=== PATIENT | male | born 1985 | race Caucasian/White ===

== ENCOUNTER 2021-07-28 16:15 | Emergency (ER) | payer OTHER ==
[~2021-07-28] VITALS: Ht 182.9 cm; Wt 106.9 kg
[2021-07-28] MEDS ORDERED: KETOROLAC 30 MG/ML VIAL. IVP ONE (16:45)
[2021-07-28] MEDS ORDERED: IOHEXOL 300 MG/ML 75 ML VIAL. IV ONE (17:00)
--- NOTE | 2021-07-28 17:19 | RAD ---
EXAM: Scrotal sonogram. HISTORY: Nontraumatic left testicular pain. TECHNIQUE: Dc scale and color Doppler sonographic imaging of the scrotum with spectral waveform shanell lysis was performed. COMPARISON: None. FINDINGS: The testes are normal in size and demonstrate normal symmetric blood flow. No focal testicu lar parenchymal lesion is seen. The epididymides are unremarkable. There are prominent left inguinal vessels. There is no lenore varicocele. There is a suspected trace right hydrocele. No inguinal hernia is seen. No lymphadenopathy is seen. IMPRESSION: 1. Unremarkable testes and epididymides. 2. Prominent left inguinal vessels. No convincing varicocele is seen. 3. Trace right hydrocele. Electronically signed by: Karen Mendoza MD (07/28/2021 5:17 PM) [id number]
--- NOTE | 2021-07-28 17:29 | PHYS DOC ---
Past History Past Surgical History: No Surgical History (HOANG BRADLEY APRN) Alcohol Use: None (HOANG BRADLEY APRN) Adult General Chief Complaint Chief Complaint: TESTICULAR PAIN OR INJURY HPI HPI Patient is a 35-year-old male presents emergency department complaining of left testicular pain since February of this year. Patient denies recent injury to the left testicle. Patient reports an original injury at work in 2014 however denies a surgery to his testicles. Patient reports pain radiates to his left groin area. Patient denies recent injury to his groin. Patient reports a 6-7 out of 10 pain on a 1-10 pain scale. Patient denies taking [id number] or prescription pain medications for this testicular discomfort. Patient denies increased discomfort with sexual intercourse or ejaculation. Patient denies seeing blood in his semen or urine. Patient denies urinary pressure, pain, or burning. Patient denies rashes to his genitals. Patient denies abdominal pain, nausea, vomiting, or diarrhea. Patient denies recent fever or chills. Patient denies other physical complaints or physical concerns. (HOANG BRADLEY APRN) Review of Systems Review of Systems 14 body systems of review of systems have been reviewed. See HPI for pertinent positives and negative responses, otherwise all other systems are negative, nonpertinent or noncontributory. Constitutional: Negative except as outlined in HPI above. Skin: Negative except as outlined in HPI above. Eyes: Negative except as outlined in HPI above. HENT: Negative except as outlined in HPI above. Respiratory: Negative except as outlined in HPI above. Cardiovascular: Negative except as outlined in HPI above. GI: Negative except as outlined in HPI above. : Negative except as outlined in HPI above. Musculoskeletal: Negative except as outlined in HPI above. Integument: Negative except as outlined in HPI above. Neurologic: Negative except as outlined in HPI above. Endocrine: Negative except as outlined in HPI above. Lymphatic: Negative except as outlined in HPI above. Psychiatric: Negative except as outlined in HPI above. (HOANG BRADLEY APRN) Current Medications Current Medications Current Medications Medications (Trade) Dose Ordered Sig/Beckie Start Time Stop Time Status Last Admin Dose Admin Iohexol (Omnipaque 300 Mg/ml) 75 ml 1X ONCE 07/28/21 17:00 07/28/21 17:01 DC Ketorolac Tromethamine (Toradol 30mg Vial) 30 mg 1X ONCE 07/28/21 16:45 07/28/21 16:47 DC (HOANG BRADLEY APRN) Allergies Allergies Allergies Coded Allergies Type Severity Reaction Last Updated Verified No Known Drug Allergies 07/28/21 No (HOANG BRADLEY APRN) Physical Exam Physical Exam Constitutional: Well developed, well nourished, no acute distress, non-toxic appearance. 35-year-old male in no apparent distress. HENT: Normocephalic, atraumatic. Eyes: Conjunctiva normal, no discharge. Neck: Normal range of motion. Cardiovascular: Distal cap refill less than 2 seconds, no cyanosis appreciated. Lungs & Thorax: Patient is in no respiratory distress, no adventitious lung sounds appreciated. Abdomen: Bowel sounds normal, soft, no tenderness, no masses, no pulsatile masses. No bruising or skin discoloration of the abdomen. Skin: Warm, dry, no erythema, no rash. Back: No tenderness, no CVA tenderness. Extremities: No tenderness, no cyanosis, no clubbing, ROM intact, no edema. Neurologic: Alert and oriented X 3, normal motor function, normal sensory function, no focal deficits noted. Psychologic: Affect normal, judgement normal, mood normal. : Testicular exam with nurse at bedside for ice puller reveals no rashes or lesions to the testicles or penis. No masses or erythema or swelling of the testicles. No hernia appreciated. Epididymis is not swollen or painful to palpation. (HOANG BRADLEY APRN) Current Patient Data Vital Signs Vital Signs Date Time Temp Pulse Resp B/P (MAP) Pulse Ox O2 Delivery O2 Flow Rate FiO2 07/28/21 16:45 98.3 77 20 152/75 (100) 97 Room Air (HOANG BRADLEY APRN) EKG EKG [] (HOANG BRADLEY APRN) Radiology/Procedures Radiology/Procedures [] (HOANG BRADLEY APRN) Radiology/Procedures PROCEDURE: CT ABD PELV W/ IV CONTRST ONLY CT abdomen and pelvis with contrast PQRS statement: CT scans at this facility use dose reduction including either automated exposure control, iterative reconstructions, and /or weight based radiation dosing via mA and kV modification when appropriate to reduce radiation dose to as low as reasonably achievable. Contrast: 75 mL Omnipaque 300 intravenous contrast. HISTORY: Left testicle pain and left groin pain. Abdomen findings: Lung bases unremarkable. Lower lumbar disc bulges and facet spurring with spinal canal and neural frontal stenoses L4-L5 on S1. Liver, gallbladder, spleen, pancreas, adrenal glands and kidneys are unremarkable. Appendix is negative. No obstruction or inflammatory changes in GI tract. No abdominal fluid or adenopathy. Pelvis findings: Bladder, prostate, and rectum are unremarkable. No fluid or adenopathy. There is asymmetric left hip osteoarthritis with bone spurring and s ubcortical bone cysts of the acetabulum. Fatty atrophy of the left rectus femoris muscle at the upper thigh likely due to an old injury. Mild fatty prominence of the left spermatic cord versus a mild fatty indirect inguinal hernia with a narrow neck at the inguinal canal, this fat measures 3 x 1 cm at the external inguinal ring and upper scrotum. IMPRESSION: 1. No acute process. Appendix is negative. 2. Mild fatty prominence of the left spermatic cord at the upper scrotum and external inguinal ring as described above. 3. Asymmetric left hip osteoarthritis. 4. Fatty atrophy of the left rectus femoris muscle at the upper thigh likely due to an old injury. Electronically signed by: Fortino Weldon MD (07/28/2021 5:54 PM) [facility] DICTATED AND SIGNED BY: FORTINO WELDON MD DATE: 07/28/211747 CC: HOANG BRADLEY APRN; CORINNE CASILLAS ~MTH0 0 PROCEDURE: TESTICULAR/SCROTUM EXAM: Scrotal sonogram. HISTORY: Nontraumatic left testicular pain. TECHNIQUE: Dc scale and color Doppler sonographic imaging of the scrotum with spectral waveform analysis was performed. COMPARISON: None. FINDINGS: The testes are normal in size and demonstrate normal symmetric blood flow. No focal testicular parenchymal lesion is seen. The epididymides are unremarkable. There are prominent left inguinal vessels. There is no lenore varicocele. There is a suspected trace right hydrocele. No inguinal hernia is seen. No lymphadenopathy is seen. IMPRESSION: 1. Unremarkable testes and epididymides. 2. Prominent left inguinal vessels. No convincing varicocele is seen. 3. Trace right hydrocele. Electronically signed by: Karen Del Castillo MD (07/28/2021 5:17 PM) [id number] DICTATED AND SIGNED BY: KAREN DEL CASTILLO MD DATE: 07/28/21 1714 CC: HOANG BRADLEY APRN; CORINNE CASILLAS ~MTH0 0 (JU GREEN APRN) Heart Score C/O Chest Pain: No Risk Factors: Risk Factors: DM, Current or recent (<one month) smoker, HTN, HLP, family history of CAD, obesity. Risk Scores: Risk Factors: DM, Current or recent (<one month) smoker, HTN, HLP, family history of CAD, obesity. (HOANG BRADLEY APRN) Course & Med Decision Making Course & Med Decision Making Pertinent Labs and Imaging studies reviewed. (See chart for details) 35-year-old male, vital signs reviewed, presents emerged from concerning left testicular pain since February. Physical examination unremarkable however will order CT abdomen pelvis along with sonogram of testicle scrotum to rule out tor breezy, or other acute abdominal process. End of shift report given to nurse practitioner Ju. (HOANG BRADLEY APRN) Course & Med Decision Making 1700 assumed care. Testicular ultrasound unremarkable testes and epididymides.Prominent left inguinal vessels. No convincing varicocele is seen. Trace right hydrocele. Ct of the abd, pelvis no acute process. Appendix is negative. Mild fatty prominence of the left spermatic cord at the upper scrotum and external inguinal ring. Asymmetric left hip osteoarthritis.Fatty atrophy of the left rectus femoris muscle at the upper thigh likely due to an old injury. Advised patient to follow-up with a urologist (JU GREEN APRN) Dragon Disclaimer Dragon Disclaimer This electronic medical record was generated, in whole or in part, using a voice recognition dictation system. (HOANG BRADLEY APRN) Attending Co-Sign The patient was seen and interviewed as well as examined at the bedside. The chart was reviewed. The case was discussed. Agree with the plan of care. (JAZMINE HUGHES DO) Departure Departure: Impression: Primary Impression: Testicular pain, left Additional Impression: Left groin pain Disposition: HOME / SELF CARE / HOMELESS Condition: STABLE Referrals: CORINNE CASILLAS (PCP) Follow-up with a urologist of your choice as soon as you can Patient Instructions: Testicular Problems and Self-Exam Additional Instructions: You were evaluated in the emergency room for groin and testicular pain. As discussed from your CT and ultrasound you have an enlarged left spinal cord, hydrocele, arthritis to the left hip and old injury to the rectus femoris muscle. Please follow-up with a urologist and orthopedic doctor of your choice. Problem Qualifiers HOANG BRADLEY APRN Jul 28, 2021 17:29 JU GREEN APRN Jul 28, 2021 18:59 JAZMINE HUGHES DO Jul 29, 2021 13:42
[2021-07-28 17:37] LABS: BASO % 1 % (0-3); EOS # 0.1 x10^3/uL (0.0-0.7); EOS % 2 % (0-3); HEMATOCRIT 45.1 % (39.0-53.0); HEMOGLOBIN 15.8 g/dL (13.0-17.5); LYMPH # 1.4 x10^3/uL (1.0-4.8); LYMPH % 26 % (24-48); MEAN CORPUSCULAR HEMOGLOBIN 32 pg (25-35); MEAN CORPUSCULAR HGB CONC 35 g/dL (31-37); MEAN CORPUSCULAR VOLUME 91 fL (79-100); MONO # 0.4 x10^3/uL (0.0-1.1); MONO % 7 % (0-9); NEUT # 3.6 x10^3uL (1.8-7.7); NEUT % 65 % (31-73); PLATELET COUNT 257 x10^3/uL (140-400); RED BLOOD COUNT 4.97 x10^6/uL (4.30-5.70); RED CELL DISTRIBUTION WIDTH 13.6 % (11.5-14.5); WHITE BLOOD COUNT 5.6 x10^3/uL (4.0-11.0)
[2021-07-28 17:50] LABS: BACTERIA,URINE 0 /HPF (0-FEW); BILIRUBIN,URINE NEG (NEG); CLARITY,URINE CLEAR; COLOR,URINE YELLOW; GLUCOSE,URINE NEG (NEG); NITRITE,URINE NEG (NEG); RBC,URINE 0 /HPF (0-2); WBC,URINE 0 /HPF (0-4)
[2021-07-28 17:52] LABS: CALCIUM 9.4 mg/dL (8.5-10.1); CREATININE 1.2 mg/dL (0.7-1.3); GFR 68.9; POTASSIUM 3.8 mmol/L (3.5-5.1)
--- NOTE | 2021-07-28 17:56 | RAD ---
CT abdomen and pelvis with contrast PQRS statement: CT scans at this facility use dose reduction including either automated exposure cont rol, iterative reconstructions, and /or weight based radiation dosing via mA and kV modification when appropriate to reduce radiation dose to as low as reasonably achievable. Contrast: 75 mL Omnipaque 300 intravenous contrast. HISTORY: Left testicle pain and left groin pain. Abdomen findings: Lung bases unremarkable. Lower lumbar disc bulges and facet spurring with spinal ca nal and neural frontal stenoses L4-L5 on S1. Liver, gallbladder, spleen, pancreas, adrenal glands and kidneys are unremarkable. Appendix is negative. No obstruction or inflammatory changes in GI tract. No abdominal fluid or adenopathy. Pelvis findings: Bladder, prostate, and rectum are unremarkable. No fluid or adenopathy. There is asy mmetric left hip osteoarthritis with bone spurring and subcortical bone cysts of the acetabulum. Fatt y atrophy of the left rectus femoris muscle at the upper thigh likely due to an old injury. Mild fatt y prominence of the left spermatic cord versus a mild fatty indirect inguinal hernia with a narrow ne ck at the inguinal canal, this fat measures 3 x 1 cm at the external inguinal ring and upper scrotum. IMPRESSION: 1. No acute process. Appendix is negative. 2. Mild fatty prominence of the left spermatic cord at the upper scrotum and external inguinal ring a s described above. 3. Asymmetric left hip osteoarthritis. 4. Fatty atrophy of the left rectus femoris muscle at the upper thigh likely due to an old injury. Electronically signed by: Tony Weldon MD (07/28/2021 5:54 PM) [facility]
[2021-07-28 17:58] LABS: ALBUMIN 4.5 g/dL (3.4-5.0); ALBUMIN/GLOBULIN RATIO 1.5 (1.0-1.7); TOTAL BILIRUBIN 0.7 mg/dL (0.2-1.0); TOTAL PROTEIN 7.5 g/dL (6.4-8.2)
[2021-07-28 19:14] VITALS: BP 146/72
== END 2021-07-28 19:18 | disposition home or self-care (01) ==
LOC: ER 16:15
DX: N50.812 Left testicular pain (principal); R10.32 Left lower quadrant pain
CPT/HCPCS: 36415; 74177; 76870; 80053; 81001; 85025; 96374; 99285; J1885; Q9967